=== PATIENT | male | born 1990 | race Caucasian/White ===

== ENCOUNTER 2016-03-08 18:41 | Emergency (ER) | payer MEDICAID, OTHER ==
[~2016-03-08] VITALS: Ht 182.9 cm; Wt 86.4 kg
[~2016-03-08 18:41] MED LIST: BENZ-12 PO
[2016-03-08 18:48] VITALS: BP 131/68; PULSE 82; RESP 18; O2SAT 98
--- NOTE | 2016-03-08 19:15 | ED.REPORT ---
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 The pain began at approximately 12:00 today as periumbilical pain, then radiated into the right lower quadrant and became severe. The pt denies testicular pain. Nursing Notes Stated Complaint: SIDE PAIN Chief Complaint: Male Abdominal Pain Nursing Notes Reviewed: Yes Allergies: Coded Allergies: No Known Allergies (Unverified Allergy, Unknown, 11/19/14) Scheduled PRN Benzonatate (Tessalon Perle) 100 Mg Capsule 100 MG PO TID PRN PRN For Cough General Time Seen by MD: 19:15 Chief Complaint Abdominal pain Hx Obtained From: Patient Arrived By: Walk-in Sudden in Onset?: No Onset Occurred: 5 - 8 hours ago Symptom Duration: Since onset Recent Healthcare: No recent doctor visit, No recent hospitalization Similar Sx Previous: No Past Medical History Past Medical History Bronchitis Reports: Asthma Past Surgical History Elbow and ankle reconstruction with plating Family History Reports: Cancer Smoking History Current Every Day Smoker Social History 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 Physical Exam Initial Vital Signs Vital Signs (First) Date Time Temp Pulse Resp B/P Pulse Ox O2 Delivery O2 Flow Rate FiO2 03/08/16 18:48 36.6 82 18 131/68 98 Room Air Initial VS: Reviewed General/Constitutional: Awake, Alert Respiratory / Chest: Atraumatic, Breath sounds NL, Breath sounds = bilat, No respiratory distress Cardiovascular: Heart rate NL, Regular rhythm, Heart sounds NL Abdomen: Atraumatic, Soft tender RLQ Back: Atraumatic, Full range of motion Head / Eyes: Atraumatic, Normocephalic, PERRL, EOMI ENT: Atraumatic, Airway patent, Mucous membranes moist Neurologic: Oriented X3, Speech NL, No motor deficits, No sensory deficits Neck: Atraumatic, Supple, Full range of motion Upper Extremity / MS: Atraumatic, Full range of motion Lower Extremity / Pelvis / MS: Atraumatic, Full range of motion Skin: Atraumatic, Color NL, No rash, Warm, Dry Psychiatric: Affect NL, Mood NL Interpretation & Diagnostics Interpretation & Diagnostics: Abdomen CT: IMPRESSION: Normal appendix found, mild to moderate right colonic obstipation, no definite source of pain radiating into the back is found. Dictated by: Henry Storm M.D. on 03/08/2016 at 22:02 Approved by: Henry Storm M.D. on 03/08/2016 at 22:02 Lab Results Interpretation Result Diagram: 03/08/16 1920 03/08/16 1920 Test 03/08/16 19:20 03/08/16 19:38 03/08/16 19:40 White Blood Count 7.9th/mm3 (3.8-10.1) Red Blood Count 5.23mil/mm3 (4.40-5.80) Hemoglobin 15.1g/dL (13.8-17.2) Hematocrit 42.8% (41.0-50.0) Mean Corpuscular Volume 81.8fL (81-100) Mean Corpuscular Hemoglobin 28.9pg (27.0-35.0) Mean Corpuscular Hemoglobin Concent 35.3% (32.0-37.0) Red Cell Distribution Width 12.5% (12.3-15.4) Platelet Count 268bil/L (150-400) Neutrophils (%) (Auto) 61.3% (40-74) Lymphocytes (%) (Auto) 29.6% (14-46) Monocytes (%) (Auto) 6.4% (4-12) Eosinophils (%) (Auto) 2.3% (0-5) Basophils (%) (Auto) 0.3% (0-3) Sodium Level 140mEq/L (134-144) Potassium Level 3.7mEq/L (3.5-5.2) Chloride Level 101mEq/L (97-108) Carbon Dioxide Level 27mmol/L (18-29) Blood Urea Nitrogen 14mg/dL (6-20) Creatinine 0.92mg/dL (0.76-1.27) Estimat Glomerular Filtration Rate 104mL/min (>59) Glucose Level 102mg/dL (60-99) Calcium Level 9.6mg/dL (8.5-10.1) Magnesium Level 2.1mg/dL (1.6-2.6) Total Bilirubin 0.3mg/dL (0.0-1.2) Aspartate Amino Transf (AST/SGOT) 23U/L (0-50) Alanine Aminotransferase (ALT/SGPT) 22U/L (0-44) Alkaline Phosphatase 56U/L (25-150) Total Protein 7.4g/dL (6.4-8.4) Albumin 4.5g/dL (3.4-5.0) Lipase 26U/L (13-60) Urine Color Yellow (YELLOW) Urine Appearance Clear (CLEAR,HAZY) Urine pH 6.0 (5.0-8.0) Urine Specific [place] 1.025 (1.003-1.035) Urine Protein Negativemg/dL (NEG,TRACE) Urine Glucose (UA) Negativemg/dL (NEGATIVE) Urine Ketones Negativemg/dL (NEGATIVE) Urine Occult Blood Negative (NEGATIVE) Urine Nitrite Negative (NEGATIVE) Urine Bilirubin Negative (NEGATIVE) Urine Urobilinogen Normalmg/dL (NORMAL) Urine Leukocyte Esterase Negative (NEGATIVE) Urine RBC 0-2/hpf (0-2) Urine WBC 0-5/hpf (0-5) Urine Epithelial Cells Occasional/hpf (NONE-MOD) Urine Crystals Oxalic acid crystals (NONE Urine Bacteria None/hpf (NONE-FEW) Urine Hyaline Casts None/lpf (NONE) Urine Granular Casts None seen (NONE SEEN) Urine Waxy Casts None seen (NONE SEEN) Urine Red Blood Cell Casts None seen (NONE SEEN) Urine White Blood Cell Casts None seen (NONE SEEN) Urine Mucus None seen (None Seen) Urine Trichomonas None seen (NONE SEEN) Urine Yeast None (NONE SEEN) Urine Culture Reflexed Not indicated Hold Urine Received (Received) Hold Martinez Top Tube Received (Received) Pulse Oximetry Interpretation Pulse Oximetry Interpretation: 98% on room air Pulse Oximetry: Pulse Ox normal Re-Eval/Medical Decision Source of Hx: Old records Re-Evaluation/Progress : Time of Eval: 22:40 Patient Status: Condition improved Re-Evaluation/Progress Note: Pt rechecked, who is resting comfortably. He is informed of his radiology results and diagnosis. The plan for discharge is discussed. The pt understands and agrees with the plan. All questions are addressed at this time. Counseled Regarding: Diagnosis, Lab results, Need for follow-up, When/why to return to ED Patient Discharge & Departure Primary Impression: Abdominal pain Abdominal location: unspecified location Qualified Code: R10.9 - Unspecified abdominal pain Additional Impression: Constipation Constipation type: unspecified constipation type Qualified Code: K59.00 - Constipation, unspecified Disposition: Home Discharge Condition All VS Reviewed: Yes Condition: Stable Patient Instructions: Acute Abdominal Pain (ED), Constipation (ED) Additional Instructions: The CT scan showed a normal appendix. You do have a large amount of stool consistent with obstipation. I would like you to take MiraLAX twice daily for the next 2 weeks. This should help clean out your bowels. Tylenol or Motrin as directed for pain. Set up a follow-up with your doctor for this week. Do not drive tonight as you have received sedating medications. Contact your physician or the referral clinic on Wednesday for follow-up this week. Return if any problems or any worsening symptoms. Referrals: [facility] Scribe Attestation Portions of this note were transcribed by [place] I, Dr. Fonseca personally performed the history, physical exam and medical decision-making; I reviewed and confirmed the accuracy of the information in the transcribed note. Signed by: Fantasma You, 03/08/16 and 22:51. copies to: [facility] Narciso Fonseca DO Mar 08, 2016 19:15 [place] Mar 08, 2016 19:29
[2016-03-08] MEDS ORDERED: HYDROmorphone 0.5 mg/0.5 mL iSecure Syringe IVPUSH PRN (19:20)
[2016-03-08] MEDS ORDERED: 0.9% Sodium Chloride 1,000 ML IV SCH (19:20)
[2016-03-08] MEDS ORDERED: Ondansetron 2 mg/mL 2 mL Inj IVPUSH PRN (19:20)
[2016-03-08 19:45] LABS: BASOPHILS % (AUTO) 0.3 % (0-3); EOSINOPHILS % (AUTO) 2.3 % (0-5); MONOCYTES % (AUTO) 6.4 % (4-12); Mean Corpuscular Hemoglobin 28.9 pg (27.0-35.0); Mean Corpuscular Volume 81.8 fL (81-100); NEUTROPHILS % (AUTO) 61.3 % (40-74); Platelet Count 268 bil/L (150-400)
[2016-03-08 20:08] LABS: Magnesium 2.1 mg/dL (1.6-2.6)
[2016-03-08] MEDS ORDERED: Iohexol 300 mg/mL 30 mL Inj PO ONE (20:25)
[2016-03-08 20:54] VITALS: BP 134/74; PULSE 84; RESP 18; O2SAT 98
--- NOTE | 2016-03-08 22:03 | DRSVH ---
PROCEDURE: CT ABDOMEN AND PELVIS WITH CONTRAST ([id number]) INDICATIONS: right lower quadrant pain TECHNIQUE: After the administration of oral and intravenous contrast, 5 mm thick sections acquired from the diap hragms to the symphysis. 5 mm thick coronal and sagittal reformats were performed. For radiation do se reduction, the following was used: automated exposure control, adjustment of mA and/or kV accordi ng to patient size. COMPARISON: [facility], CR, XR CHEST 2VW, 11/19/2014, 22:40. FINDINGS: Image quality: Excellent. ABDOMEN: Lung bases: Lung bases are clear. Heart size is normal. Solid organs: Liver and spleen are normal in size and enhancement. Gallbladder appears normal. Jason iary system is non-dilated. Pancreas enhances normally. No adrenal nodules. Kidneys are normal in size and enhancement, without hydronephrosis. Peritoneum and bowel: Stomach, small bowel, and colon loops are normal in caliber and wall thickness . No free fluid or air. Nodes and vessels: No retroperitoneal or mesenteric adenopathy. Aorta and inferior vena cava are no rmal in caliber. Miscellaneous: No ventral hernias. PELVIS: Genitourinary: Bladder wall thickness is normal. Miscellaneous: No inguinal hernias or adenopathy. At the right lower quadrant a normal appendix is seen, retrocecal. Bones: No suspicious bony lesions. No vertebral body compression fractures. IMPRESSION: Normal appendix found, mild to moderate right colonic obstipation, no definite source of pain radiating into the back is found. Dictated by: Henry Storm M.D. on 03/08/2016 at 22:02 Approved by: Henry Storm M.D. on 03/08/2016 at 22:02
[2016-03-08 22:31] LABS: APPEARANCE,URINE CLEAR (CLEAR,HAZY); COLOR,URINE YELLOW (YELLOW); OCCULT BLOOD,URINE NEGATIVE (NEGATIVE); UROBILINOGEN,URINE NORMAL (NORMAL)
[2016-03-08 23:04] VITALS: BP 126/68; PULSE 72; RESP 16; O2SAT 98
[2016-04-09] MEDS ORDERED: IBUP800T28 PO (16:07)
== END 2016-03-08 23:06 | disposition home or self-care (01) ==
LOC: SED 18:41
DX: R10.31 Right lower quadrant pain (principal); K59.00 Constipation, unspecified; J45.909 Unspecified asthma, uncomplicated; F17.200 Nicotine dependence, unspecified, uncomplicated
CPT/HCPCS: 36415; 74177; 80053; 81000; 83690; 83735; 85025; 96361; 96374; 96375; 99285; J1170; J2405; J7030; Q9967

== ENCOUNTER 2016-04-13 08:01 | Day surgery (SDC) | payer OTHER ==
[~2016-04-13] VITALS: Ht 182.9 cm; Wt 82.0 kg
[2016-04-13] VITALS (8 sets, daily range): BP systolic 94–130; BP diastolic 40–74; PULSE 66–75; RESP 15–18; O2SAT 98–100
[~2016-04-13 08:01] MED LIST changes: -BENZ-12 PO; +CeFAZolin Inj 2 GM in IV Premix 1 EACH IV ONE; +HYDROcodone-APAP 5-325 mg Tablet PO PRN; +IBUP800T28 PO; +Lactated Ringer's 1,000 ML IV ONE
[2016-04-13] MEDS ORDERED: Dexamethasone 4 mg/mL Inj ONE (08:02)
[2016-04-13] MEDS ORDERED: MetoCLOpramide 5 mg/mL 2 mL Inj ONE (08:02)
[2016-04-13] MEDS ORDERED: Propofol 10,000 mCg/mL 20 mL Inj ONE (08:02)
[2016-04-13] MEDS ORDERED: Ondansetron 2 mg/mL 2 mL Inj ONE (08:02)
[2016-04-13] MEDS ORDERED: fentaNYL-PF 50 mCg/mL 2 mL Inj ONE (08:02)
[2016-04-13] MEDS ORDERED: Polyethylene Glycol (PEG) 17 Gm Powder PO SCH (08:30)
[2016-04-13] MEDS ORDERED: Lactated Ringer's 1,000 ML IV ONE ×2 (08:42→11:10)
--- NOTE | 2016-04-13 09:43 | PCM.HPANE ---
Patient Data Surgeon Admitting Provider: Attending Provider:Chip Cardoso MD Primary Care Physician:Chai Other Provider:Flex Burrell Anesthesia Reason for Visit Right Inguinal Hernia Ht/WT & BMI Height (Feet): 6 Height (Inches): 0.00 Weight (Kilograms): 82 Body Mass Index 24.00 Allergies Coded Allergies: No Known Allergies (Unverified Allergy, Unknown, 11/19/14) Past Anesthesia History Anesthesia History: Denies:: Abnormal Airway, Anesthesia Reactions, Difficult Intubation, Fam Anesthesia Reaction Diabetes History Hx Diabetes?: No MRSA MRSA: No Medications Hypertension Medication: No Home Meds Incl Beta Vasquez: No Reported Medications Ibuprofen 800 Mg [id number] Mg PO TID PRN For Pain Ref 0 04/09/16 Discontinued Scripts Benzonatate (Tessalon Perle)100 Mg [id number] Mg PO TID PRN For Cough #20 CAPSULE Prov:Rajinder Julio Beba DO 11/19/14 History History of ENT Problems?: No HEENT History: Denies:: Abnormal Airway Cataracts Difficult Intubation Dysphagia Glaucoma Hearing Problem Sinus Problem TMJ Teeth Condition: Tooth Decay Hx of Heart Problems?: No Cardiovascular History: Denies:: AICD Abdominal Aortic Aneurism Atrial Fibrillation Cardiac Surgery Chest Pain Congestive Heart Failure Edema Heart Murmur Hypertension Irregular Heartbeat Pacemaker Peripheral Vascular Hx of Respiratory Problem?: Yes Respiratory History: Positive for:: Asthma (during illness only) Denies:: COPD Emphysema Oxygen Administration Pneumonia Tuberculosis Use of C-PAP Machine Use of Inhalers / NEBS Hx Neurologic Problems?: No Neurological History: Denies:: CVA Dementia Dizziness Headaches Multiple Sclerosis Parkinson's Disease Seizures TIA Hx of GI Problems?: Yes Gastrointestinal History: Denies:: Cirrhosis Diverticulitis Gall Bladder Disease Gastroesphageal Reflux Gastrointestinal Bleeding Heartburn Hepatitis Hiatal Hernia Liver Disease Rectal Bleeding Other GI Pertinent History: right inguinal hernia current admission problem Hx of Problems?: No Genitourinary History: Denies:: Kidney Stones Urinary Tract Infection Male Hx: Denies:: Prostate Problems Skin History: Denies:: History Skin Disorders? Pressure Ulcers Hx Musculoskeletal Problems?: Yes Musculoskeletal History: Positive for:: Musculoskeletal Trauma (past hx ortho surgery- left ankle, right elbow) Denies:: Back Injury Fibromyalgia Joint Replacement Myasthenia Gravis Osteoarthritis Hx of Psycho/Social Problems?: Yes Psycho Social History: Positive for:: Anxiety (PTSD, situational anxiety) Hx Depression Hx Surgeries?: Yes (left ankle ORIF, right elbow) Hx Any Other Health Problems?: Yes Other History: Denies:: Cancer Thyroid Disease History Blood Transfusions: Positive for:: Accept Blood Products? Denies:: Blood Transfusions Hx Diabetes: No Hx Alcohol Use: Yes (social)Alcoholic Drinks Per Day: once to twice yearlyHx Substance Use: Yes (Opiod addiction in past, quit marijuana one month ago) Smoking Status: Current Every Day Smoker Have You Smoked inLast 12 mo: Yes (1 ppd, just reduced to 1/2 ppd ) Stop/Bang Treated for Sleep Apnea?: No Do You Have a CPAP Machine?: No S-Snoring: Do You Snore Loudly: No T-Tired: feel tired, fatigued: No O-Obsered: Observed not breath: No P-Blood Pressure: treated: No B- Body Mass Index > 35 kg/m2: No A- Age over 50: No N- Neck Large Circumference: No G- Gender Male: Yes VAZQUEZ Total Score: 1 VAZQUEZ Risk Assessment: Low Risk, <3 Yes Risk Assessment Category Category 1A: Patient has history of documented sleep apnea, and HAS NOT received any narcotic, sedative or anesthesia administration during this stay. Category 1B: Patient has history of documented sleep apnea, and HAS received any narcotic , sedative or anesthesia administration during this stay Category 2: Patient has SUSPECTED Obstructive Sleep Apnea, and HAS received any narcotic , sedative or anesthesia administration during this stay. Category 3: Patient has SUSPECTED Obstructive Sleep Apnea and HAS NOT received narcotic, sedative or anesthesia administration during this stay. Category 4: Outpatient in Procedural Areas with known sleep apnea or who screen positive for High Risk via the STOP/BANG questionnaire. Exam Exam Vital Signs Vital Signs Date Time Temp Pulse Resp B/P Pulse Ox O2 Delivery O2 Flow Rate FiO2 04/13/16 08:22 36.7 69 18 119/74 100 Room Air General Appearance: Oriented X3 HEENT/AIRWAY: MP 1 Lungs: Normal Air Movement Heart: Regular Rate/Rhythm Meds/Labs/Diagnostics Admission Meds Current Medications Lactated Ringer's (Lr) 1,000 ml @ ud STK-MED ONCE IV Last administered on 04/13t 08:42; Start 04/13/16 at 08:42; Stop 04/13/16 at 08:43; Status DC Plan Impression Patient chart reviewed, patient interviewed and anesthestic plan with risks, benefits, and alternatives discussed, and informed consent obtained. NPO Status: 04/12@2345 ASA Physical Status: ASA2 Mod Systemic Disease Anesthetic Plan: GA Bene/Risks/Altern/Consents: Yes HP Complete Prior to Induction: Yes Judah Dodge MD Apr 13, 2016 09:43
[2016-04-13] MEDS ORDERED: POLY17PO6 PO (09:52)
[2016-04-13] MEDS ORDERED: HYDR-4003 PO (09:52)
[2016-04-13] MEDS ORDERED: Lactated Ringer's 500 ML IV PRN (10:11)
[2016-04-13] MEDS ORDERED: Lactated Ringer's 1,000 ML IV SCH (10:11)
[2016-04-13] MEDS ORDERED: Ondansetron 2 mg/mL 2 mL Inj IVPUSH PRN (10:15)
[2016-04-13] MEDS ORDERED: Phenylephrine 10,000 mCg/mL Inj IVPUSH PRN (10:15)
[2016-04-13] MEDS ORDERED: EPHEDrine Sulfate 50 mg/mL Inj IVPUSH PRN (10:15)
[2016-04-13] MEDS ORDERED: MetoCLOpramide 5 mg/mL 2 mL Inj IVPUSH PRN (10:15)
[2016-04-13] MEDS ORDERED: Dexamethasone 4 mg/mL Inj IVPUSH PRN (10:15)
[2016-04-13] MEDS ORDERED: Labetalol 5 mg/mL 4 mL Inj IV PRN (10:15)
[2016-04-13] MEDS ORDERED: HYDROmorphone 1 mg/mL Inj IVPUSH PRN (10:15)
[2016-04-13] MEDS ORDERED: Bupivacaine-MPF 0.5% 30 mL Inj INFILTRATE ONE (10:18)
[2016-04-13] MEDS ORDERED: oxyCODONE-Acetamin 5-325 mg Tablet PO PRN (11:20)
--- NOTE | 2016-04-13 11:23 | PCM.SURGPO ---
Immediate Operative Note Date of Surgery: Apr 13, 2016 Pre Operative Diagnosis Right Inguinal hernia Post Operative Diagnosis Right indirect inguinal hernia with cord lipoma Procedure Open Right inguinal hernia repair with mesh Surgeon and Standards Analyst Surgeon: Chip Cardoso MD Assistants: Soto Draper, PAC Findings Indirect Inguinal hernia with cord lipoma Complications There were no periprocedural complications identified. Surgical Specimen Removed: No Specimen sent to Pathology: No Anesthetic Administered: GA Grafts, Implants: Grafts-See Implant Record Output, Estimated Blood Loss: 0 Blood Admin during surgery: No Attending Statement Tool And Die Inspector listed was medically necessary for the completion of the case Chip Cardoso MD Apr 13, 2016 11:23
[2016-04-13] MEDS ORDERED: OXYC1TAB24 PO (11:24)
[2016-04-13] MEDS: fentaNYL-PF 50 mCg/mL 2 mL Inj IVPUSH PRN ×2 (11:40→11:45)
--- NOTE | 2016-04-13 12:48 | PCM.ANEP1 ---
Post Anesthesia Phase 1 PACU Phase 1 Assessment Date of Service: Apr 13, 2016 Vital Signs Vital Signs Date Time Temp Pulse Resp B/P Pulse Ox O2 Delivery O2 Flow Rate FiO2 04/13/16 12:13 68 15 130/66 99 Nasal Cannula 2 04/13/16 12:00 70 15 106/50 98 Nasal Cannula 2 04/13/16 11:45 68 15 96/46 98 Simple Mask 8 04/13/16 11:40 70 15 98/42 98 Simple Mask 8 04/13/16 11:35 73 15 102/40 98 Simple Mask 8 04/13/16 11:30 36.8 75 15 94/44 98 Simple Mask 8 04/13/16 08:22 36.7 69 18 119/74 100 Room Air Anesthetic Administered: GA Level of Alertness: Awake, talking Pain: No Nausea or Vomiting: No Oxygen Delivery: Room Air Lungs: Normal Air Movement Judah Dodge MD Apr 13, 2016 12:48
--- NOTE | 2016-04-13 12:49 | PCM.ANEP2 ---
Post Anesthesia Evaluation ASA/CMS Post Anesthesia VS in Patient's Normal Range?: Yes Resp Stable; Airway Patent?: Yes CV Function & Hydration Stable: Yes Mental Status Recovered?: Yes Pain control Satisfactory?: Yes N/V Control Satisfactory?: Yes Judah Dodge MD Apr 13, 2016 12:49
--- NOTE | 2016-04-13 15:43 | OP ---
[address] [address] OPERATIVE REPORT PATIENT: BRAYAN SANDOVAL : 1990 MR#: [id number] ADMIT: 04/13/2016 JOB ID: [id number] DATE OF SURGERY: 04/13/2016 PREOPERATIVE DIAGNOSIS(ES): Right inguinal hernia. POSTOPERATIVE DIAGNOSIS(ES): Right indirect inguinal hernia with cord lipoma. PROCEDURE PERFORMED: Open repair of right inguinal hernia with mesh. SURGEON: Chip Cardoso MD. MAKEUP ARTISTRY INSTRUCTOR: Soto Draper PA-C COMPLICATIONS: None. CONDITION OF THE PATIENT: Stable. INDICATIONS: The patient is a 26-year-old gentleman, who presented to our emergency department on March 08, 2016, with severe right lower quadrant pain. He had a CT, diagnosed with possible obstipation, and sent home with laxatives. He continued to have right groin pain, especially while lifting heavy objects, prompting him to go back to Urgent Care on March 12, 2016. He then had an ultrasound and was sent to me with a diagnosis of right inguinal hernia. On physical exam, the right inguinal region was slightly more prominent than the left and was tender to deep palpation over both inguinal rings, but no obvious hernia was palpable. After discussing the risks, benefits, and alternatives, he is here today for open repair of the right inguinal hernia with mesh. PROCEDURE DETAILS: He was placed in a supine position and underwent smooth induction of general anesthesia. The right groin was prepped and draped in the usual sterile fashion. Surgical time-out was undertaken using safety checklist, and all were in agreement. We began by making an incision from the pubic tubercle laterally along Allen's lines, deepened in the skin and subcutaneous tissue sharply. I exposed the external oblique aponeurosis and then opened it to the external inguinal ring. Identified the in ilioinguinal ring and the epigastric nerves and resected them as proximally as I could. After that, I opened the cord after encircling it with a Rody drain and isolated the cord lipoma associated with the deep indirect inguinal hernia. I dissected it free from the cord structures and reduced them both into the abdominal cavity. After that, I repaired the inguinal floor with a 3 x 6 Marlex, appropriately cut size, anchored with 0 PDS sutures to the to the pubic tubercle inferomedially, shelving edge of the inguinal ligament inferiorly, rectus abdominis medially, creating a new deep ring between the leaves of the mesh with adequate space for the cord structures. The external oblique aponeurosis was reapproximated with 3-0 Vicryl. Then, skin was reapproximated with 4-0 Monocryl. Steri-Strips and sterile dressing were applied. Patient was recovered from anesthesia and was taken to the recovery room in stable condition.
[2016-04-14] MEDS ORDERED: Polyethylene Glycol (PEG) 17 Gm Powder PO SCH (08:30)
== END 2016-04-13 23:59 | disposition home or self-care (01) ==
LOC: SAS 08:01
PROVIDERS: ATTEND Student in an Organized Health Care Education/Training Program
DX: K40.90 Unilateral inguinal hernia, without obstruction or gangrene, not specified as recurrent (principal); F43.10 Post-traumatic stress disorder, unspecified; F41.8 Other specified anxiety disorders; G47.00 Insomnia, unspecified; F11.20 Opioid dependence, uncomplicated
CPT/HCPCS: 49505; C1781; J0690; J1100; J1170; J2175; J2405; J2765; J3010; J7120

== ENCOUNTER 2016-04-14 19:19 | Emergency (ER) | payer OTHER ==
[~2016-04-14] VITALS: Ht 185.4 cm; Wt 84.0 kg
[~2016-04-14 19:19] MED LIST changes: -CeFAZolin Inj 2 GM in IV Premix 1 EACH IV ONE; -HYDROcodone-APAP 5-325 mg Tablet PO PRN; -Lactated Ringer's 1,000 ML IV ONE; +OXYC1TAB24 PO; +POLY17PO6 PO
[2016-04-14 19:23] VITALS: BP 135/81; PULSE 61; RESP 18; O2SAT 100
[2016-04-14 20:16] LABS: BASOPHILS % (AUTO) 0.2 % (0-3); EOSINOPHILS % (AUTO) 0.6 % (0-5); MONOCYTES % (AUTO) 5.5 % (4-12); Mean Corpuscular Hemoglobin 28.8 pg (27.0-35.0); NEUTROPHILS % (AUTO) 69.7 % (40-74); Platelet Count 236 bil/L (150-400)
[2016-04-14 20:36] LABS: TROPONIN T < 0.010 ug/L (0.0-0.011)
[2016-04-14 20:45] LABS: Lipase 19 U/L (13-60); Magnesium 1.9 mg/dL (1.6-2.6)
--- NOTE | 2016-04-14 21:03 | ED.REPORT ---
HPI-General Illness Date of Service Apr 14, 2016 ED Provider: Dr. Kody Gayle M.D. A 26 year old male with a medical history including asthma, PTSD, prior opiate addiction, and right inguinal hernia s/p repair with mesh presents to the ED with postoperative right testicle pain and swelling onset today. Associated symptoms include nausea, constipation, and an inability to urinate. The patient denies vomiting. Yesterday he underwent inguinal hernia repair surgery with mesh placement. Nursing Notes Stated Complaint: PAIN IN GROIN. HAD SURGERY 04/13/16 FOR HERNIA Chief Complaint: General Complaint Nursing Notes Reviewed: Yes Allergies: Coded Allergies: No Known Allergies (Unverified Allergy, Unknown, 11/19/14) Scheduled Polyethylene Glycol 3350 (Miralax) 17 Gm Powd.pack 17 GM PO DAILY Scheduled PRN Ibuprofen (Ibuprofen) 800 Mg Tablet 800 MG PO TID PRN PRN For Pain oxyCODONE-Acetaminophen 5-325 mg (oxyCODONE-Acetaminophen 5-325 mg) 1 Each Tablet 1 TAB PO Q6H PRN PRN For Pain General Time Seen by MD: 21:03 Chief Complaint Other (Right Testicle Pain and Swelling) Hx Obtained From: Patient Arrived By: Walk-in Sudden in Onset?: Yes Onset Occurred: 9 - 12 hours ago Symptom Duration: Since onset Location: : Abdomen (Right Testicle) Quality: Painful Severity: Current: Moderate Severity: Maximum: Moderate Associated with: Reports: Nausea, Denies: Fever Pertinent Negative: Relieved by nothing Context Related History: Reports Asthma, Reports Hernia, Reports Psychiatric history Recent Healthcare: Recent doctor visit, Previous surgery Past Medical History Past Medical History Bronchitis Right inguinal hernia Asthma PTSD Anxiety Depression Past Surgical History Right elbow and left ankle reconstruction with plating Inguinal hernia repair with mesh Family History Reports: Cancer Smoking History Current Every Day Smoker Social History Prior addiction to opiates Alcohol Use: Denies alcohol use Drug Use: THC Ambulatory Status Independent Review of Systems Full Review of Systems Constitutional: Denies: Fever Respiratory: Denies: Non-productive cough, Shortness of breath GI: Reports: Constipation, Nausea, Denies: Vomiting Male: Reports Testicular pain (Right), Reports Testicular swelling (Right), Reports Urination decreased (Inability to urinate) Complete sys rev & neg: except as marked. Physical Exam Vital Signs Vital Signs Date Time Temp Pulse Resp B/P Pulse Ox O2 Delivery O2 Flow Rate FiO2 04/15/16 00:45 37.1 88 16 142/84 98 Room Air 04/14/16 19:23 36.8 61 18 135/81 100 Initial VS: Reviewed Head / Eyes: Atraumatic, Normocephalic ENT: Conjunctiva normal, No scleral icterus Neck: Supple, Full range of motion Respiratory: No respiratory distress Skin: Warm, Dry Neurologic: Alert, Oriented, Nonfocal Psychiatric: Mood/affect normal, Behavior normal, Normal thought content General/Constitutional: Awake, Alert, No acute distress Male Genitourinary: Penis NL Testes / Epidid / Scrotum: Positive: Testis enlarged R (Mild), Testis tender R , Negative: Hydrocele L, Hydrocele R, Scrotum erythema No signs of testicular torsion Interpretation & Diagnostics US SCROTUM: CONCLUSION: No sonographic evidence of acute testicular pathology. Heterogeneous hypervascular appearance of the lateral wall of the right scrotum suggesting cellulitis. Report transmitted to ED by Radiologist Gerard Schroeder at 04/15/2016 - 12:04:21 AM PST -------- URINE DIPSTICK: 1.015 sp gravity 5 pH Normal Glucose Normal Urobilinogen Otherwise Negative Lab Results Interpretation Result Diagram: 04/14/16200404/14/162004 Test 04/14/16 20:05 04/14/16 23:28 White Blood Count 11.4th/mm3 (3.8-10.1) Red Blood Count 4.51mil/mm3 (4.40-5.80) Hemoglobin 13.0g/dL (13.8-17.2) Hematocrit 37.0% (41.0-50.0) Mean Corpuscular Volume 82.0fL (81-100) Mean Corpuscular Hemoglobin 28.8pg (27.0-35.0) Mean Corpuscular Hemoglobin Concent 35.1% (32.0-37.0) Red Cell Distribution Width 12.5% (12.3-15.4) Platelet Count 236bil/L (150-400) Neutrophils (%) (Auto) 69.7% (40-74) Lymphocytes (%) (Auto) 23.8% (14-46) Monocytes (%) (Auto) 5.5% (4-12) Eosinophils (%) (Auto) 0.6% (0-5) Basophils (%) (Auto) 0.2% (0-3) Hold Purple Top Tube Received (Received) Prothrombin Time 10.7sec (8.1-12.5) Prothromb Time International Ratio 1.00ratio Hold Blue Top Tube Received (Received) Sodium Level 137mEq/L (134-144) Potassium Level 3.8mEq/L (3.5-5.2) Chloride Level 99mEq/L (97-108) Carbon Dioxide Level 27mmol/L (18-29) Blood Urea Nitrogen 12mg/dL (6-20) Creatinine 0.81mg/dL (0.76-1.27) Estimat Glomerular Filtration Rate 121mL/min (>59) Glucose Level 93mg/dL (60-99) Lactic Acid Level 1.4mmol/L (0.4-2.0) Calcium Level 8.9mg/dL (8.5-10.1) Magnesium Level 1.9mg/dL (1.6-2.6) Total Bilirubin 0.3mg/dL (0.0-1.2) Aspartate Amino Transf (AST/SGOT) 17U/L (0-50) Alanine Aminotransferase (ALT/SGPT) 15U/L (0-44) Alkaline Phosphatase 44U/L (25-150) Troponin T < 0.010ug/L (0.0-0.011) Pro-B-Type Natriuretic Peptide 57.96pg/mL (0-86) Total Protein 6.3g/dL (6.4-8.4) Albumin 4.3g/dL (3.4-5.0) Lipase 19U/L (13-60) Hold Red Top Tube Received (Received) Hold [place] Top Tube Received (Received) Hold [place] Top Tube Received (Received) Urine Color Yellow (YELLOW) Urine Appearance Clear (CLEAR,HAZY) Urine pH 6.0 (5.0-8.0) Urine Specific [place] 1.010 (1.003-1.035) Urine Protein Negativemg/dL (NEG,TRACE) Urine Glucose (UA) Negativemg/dL (NEGATIVE) Urine Ketones Negativemg/dL (NEGATIVE) Urine Occult Blood Negative (NEGATIVE) Urine Nitrite Negative (NEGATIVE) Urine Bilirubin Negative (NEGATIVE) Urine Urobilinogen Normalmg/dL (NORMAL) Urine Leukocyte Esterase Negative (NEGATIVE) Urine RBC 0-2/hpf (0-2) Urine WBC 0-5/hpf (0-5) Urine Epithelial Cells Occasional/hpf (NONE-MOD) Urine Crystals None seen (NONE SEEN) Urine Bacteria None/hpf (NONE-FEW) Urine Hyaline Casts None/lpf (NONE) Urine Granular Casts None seen (NONE SEEN) Urine Waxy Casts None seen (NONE SEEN) Urine Red Blood Cell Casts None seen (NONE SEEN) Urine White Blood Cell Casts None seen (NONE SEEN) Urine Mucus None seen (None Seen) Urine Trichomonas None seen (NONE SEEN) Urine Yeast None (NONE SEEN) Urinalysis Comment None Urine Culture Reflexed Not indicated Re-Eval/Medical Decision Med Decision/Clinical Course 18-year-old male just postop from a herniorrhaphy and mesh placement. He has some tenderness and swelling down the right side of his scrotum. Ultrasound shows no findings and testicle, but only some cellulitis in the lateral scrotum. Discussed with surgical coverage, Dr. Rosales, and he prefers we not start antibiotics, but allow the patient to be seen in the office this morning. Discharged in stable condition. Source of Hx: Old records Time of Eval: 00:21 Patient Status: Condition improved Re-Evaluation/Progress Note: Discussed with patient lab and US results, surgery consult, diagnosis, and plan for discharge. Follow-up and return to the ER instructions given. Patient agrees with plan for care and all questions were addressed. Consultation : Referral / Consult Name: Edward Rosales MD Consulted With: Surgeon Call Returned at: 00:19 Printed Circuit Board Drafter: Agrees with eval, Agrees with plan Note: Recommends close outpatient follow-up Counseled Regarding: Diagnosis, Lab results, Need for follow-up, When/why to return to ED Discharge & Departure Primary Impression: Postoperative pain Disposition: Home Discharge Condition All VS Reviewed: Yes Condition: Improved Patient Instructions: Inguinal Hernia (ED) Additional Instructions: The ultrasound does not show any problem with the testicle. There is some swelling in the sidewall of the scrotum that is probably from the surgery. Wear supportive underwear to support your scrotum. Call Dr. Cardoso first thing this morning for follow-up visit today. Referrals: NOPCP (PCP) Chip Cardoso MD [facility] Scribe Attestation Portions of this note were transcribed by Cat Motta. I, Dr. Gayle, personally performed the history, physical exam, and medical decision-making; I reviewed and confirmed the accuracy of the information in the transcribed note. Signed by: Fantasma Crain, 04/15/2016, 01:55 copies to: Chip Cardoso MD; [facility] Kody Gayle MD Apr 14, 2016 21:03 CAT MOTTA Apr 14, 2016 21:15
[2016-04-14] MEDS: HYDROmorphone 1 mg/mL Inj IVPUSH PRN ×4 (21:05→23:18)
[2016-04-14] MEDS ORDERED: Ondansetron 2 mg/mL 2 mL Inj IVPUSH ONE (21:05)
[2016-04-14 23:53] LABS: APPEARANCE,URINE CLEAR (CLEAR,HAZY); COLOR,URINE YELLOW (YELLOW); OCCULT BLOOD,URINE NEGATIVE (NEGATIVE); UROBILINOGEN,URINE NORMAL (NORMAL)
[2016-04-15 00:45] VITALS: BP 142/84; PULSE 88; RESP 16; O2SAT 98
--- NOTE | 2016-04-15 09:57 | DRSVH ---
PROCEDURE: US TESTICULAR SONOGRAM WITH DOPPLER INDICATIONS: testicular swelling and pain post hernia TECHNIQUE: Real-time scanning was performed of the scrotum and testicles, with image documentation. Color and p ulse Doppler interrogation was performed of both testicles. COMPARISON: None. FINDINGS: Right: Testicle is normal in size at 5.9 x 3.0 x 3.6 cm, and homogenous in echotexture. Epididymis is normal in overall size and morphology. No hydrocele or varicoceles. Overlying scrotal skin is th ickened and heterogeneous. Left: Testicle is normal in size at 5.0 x 2.7 x 3.5 cm, and homogeneous in echotexture. Epididymis is normal in overall size and morphology. No hydrocele or varicoceles. Overlying scrotal skin is no rmal in thickness. Doppler: Color and pulse Doppler demonstrate normal and symmetric arterial flow in both testicles. IMPRESSION: 1. Normal testicles bilaterally. 2. Mild thickening of the right lateral scrotum indicated by the public works supervisor which may be related to cellulitis. Recommend clinical correlation. Dictated by: Jamison GOMEZ Interpreted: Henry Storm MD on 04/15/2016 at 9:54 Transcribed by: BRAULIO on 04/15/2016 at 9:56 Approved by: Henry Storm M.D. on 04/15/2016 at 17:45
== END 2016-04-15 00:55 | disposition home or self-care (01) ==
LOC: SED 19:19
DX: G89.18 Other acute postprocedural pain (principal); N50.811 Right testicular pain; N50.89 Other specified disorders of the male genital organs; K59.00 Constipation, unspecified; R11.0 Nausea; R33.9 Retention of urine, unspecified; J45.909 Unspecified asthma, uncomplicated; F17.200 Nicotine dependence, unspecified, uncomplicated; Z98.890 Other specified postprocedural states
CPT/HCPCS: 76870; 80053; 81000; 83605; 83690; 83735; 83880; 84484; 85025; 85610; 93975; 96374; 96375; 96376; 99285; J1170; J2405